=== PATIENT | male | born 1980 | race African-American/Black ===

== ENCOUNTER 2017-07-13 20:38 | Emergency (ER) | payer OTHER ==
[~2017-07-13] VITALS: Ht 177.8 cm; Wt 104.5 kg
[2017-07-13 20:44] VITALS: BP 129/90; PULSE 84; RESP 15; TEMP 98.3; O2SAT 99
--- NOTE | 2017-07-13 20:54 | PD ---
HPI Chief Complaint: Fall Time Seen by Provider: 20:42 Travel History International Travel<30 days: No Contact w/Intl Traveler<30days: No Traveled to known affect area: No History of Present Illness HPI 36yo M with no PMH presents to the ED with c/o shooting pain in right arm after slip and fall on his right elbow at 5:40pm today. Pt is a [employer] and was in a bathroom when he slip and fell on his right elbow. Denies any head trauma or any other injury. States he did put ice on it. States when he squeeze his right hand in a fist, he has shooting pain in forearm down to elbow. Denies any focal weakness or numbness, chest pain, fever, sob, n/v, abdominal pain. PFSH Past Medical History Medical History: Denies Significant Hx Tetanus Vaccination: > 5 Years Past Surgical History Other Surgery: Yes (VASECTOMY ) Social History Alcohol Use: Yes Tobacco Use: No Allergies-Medications (Allergen,Severity, Reaction): Coded Allergies: No Known Allergies (Unverified , 07/13/17) Reported Meds & Prescriptions Reported Meds & Active Scripts Active No Active Prescriptions or Reported Medications Review of Systems Except as stated in HPI: all other systems reviewed are Neg Physical Exam Narrative GENERAL: 36yo M not in distress. SKIN: Focused skin assessment warm/dry. HEAD: Atraumatic. Normocephalic. CARDIOVASCULAR: Regular rate and rhythm. No murmur appreciated. RESPIRATORY: No accessory muscle use. Clear to auscultation. Breath sounds equal bilaterally. GASTROINTESTINAL: Abdomen soft, non-tender, nondistended. No rebound tenderness or guarding. MUSCULOSKELETAL: RUE: No ttp right shoulder. No ttp right elbow. No erythema, edema or open wound on right elbow. Good range of motion in right elbow. Forearm compartment soft. No ttp right forearm, wrist, or scaphoid. Normal muscle strength in radial, ulna and median distribution. NEUROLOGICAL: Awake and alert. No obvious cranial nerve deficits. Motor grossly within normal limits. Normal speech. PSYCHIATRIC: Appropriate mood and affect; insight and judgment normal. Data Data Last Documented VS Vital Signs Date Time Temp Pulse Resp B/P (MAP) Pulse Ox O2 Delivery O2 Flow Rate FiO2 07/13/17 20:44 98.3 84 15 129/90 (103) 99 Orders Orders Elbow, Limited (Ap&Lat) (07/13/17 ) Ibuprofen (Motrin) (07/13/17 21:00) MDM Medical Decision Making Medical Screen Exam Complete: Yes Emergency Medical Condition: Yes Differential Diagnosis Contusion of elbow vs. neuropathy vs. fracture Narrative Course 36yo M with right elbow pain s/p slip and fall on right elbow. Xray right elbow showed small joint effusion, probably hemarthrosis without a clear fracture. Denies any bleeding disorder or any anticoagulation. Pt given ibuprofen with improvement of pain. Instructed pt to follow up with primary care physician or orthopedic if pain persists. Diagnosis Primary Impression: Contusion of right elbow Qualified Codes: S50.01XA - Contusion of right elbow, initial encounter Patient Instructions: General Instructions Departure Forms: Tests/Procedures Additional Instructions: Please follow up with your primary care physician or orthopedic clinic if pain persists. Return to the ED if symptoms worsen. Med/Other Pt SpecificInfo: Prescription(s) given Scripts Ibuprofen (Ibuprofen) 600 Mg Tab 600 MG PO Q8H Y for PAIN, #20 TAB 0 Refills Prov: Lizette Nunez DO 07/13/17 Disposition: 01 DISCHARGE HOME Condition: Stable Lizette Nunez DO Jul 13, 2017 20:54
[2017-07-13] MEDS ORDERED: IBUPROFEN 600 MG TAB PO ONE (21:00)
--- NOTE | 2017-07-13 21:43 | RADRPT ---
EXAM DATE/TIME: 07/13/2017 20:58 [facility] COMPARISON: No previous studies available for comparison. INDICATIONS : Right elbow pain from a fall. MEDICAL HISTORY : None. SURGICAL HISTORY : None. ENCOUNTER: Initial ACUITY: 1 day PAIN SCORE: 8/10 LOCATION: Right Elbow FINDINGS: No definite fractures, or dislocations are identified. No definite lytic or sclerotic lesion is seen . The joint spaces are well maintained. small joint effusion is seen. CONCLUSION: Small joint effusion probably hemarthrosis without a clear fracture. Wendy Swanson MD on July 13, 2017 at 21:41 Board Certified Radiologist. This report was verified electronically.
[2017-07-13] MEDS ORDERED: IBUP-232 PO (22:29)
== END 2017-07-13 23:03 | disposition home or self-care (01) ==
LOC: NEPD 20:38
DX: S50.01XA Contusion of right elbow, initial encounter (principal); W01.0XXA Fall on same level from slipping, tripping and stumbling without subsequent striking against object, initial encounter
CPT/HCPCS: 73070; 99283